=== PATIENT | male | born 1975 | race Caucasian/White ===

== ENCOUNTER 2024-10-02 16:02 | Emergency (ER) | payer OTHER ==
[2024-10-02] MEDS ORDERED: LORazepam 2 MG/ML VIAL ONE (17:02)
[2024-10-02 17:05] LABS: Absolute Eosinophils 0.1 K/uL (0-0.5); Absolute Lymphocytes (CBC) 1.1 K/uL (0.7-4.9); Absolute Monocytes 0.4 K/uL (0.1-1.3); Absolute Neutrophil 4.5 K/uL (1.8-8.0); Basophils % 0.5 % (0-1.3); Eosinophils % 2.1 % (0-4.4); Hemoglobin 14.8 g/dL (13.6-17.9); Lymphocytes % 18.3 % (15.3-44.8); MCH 32.2 pg (27.0-35.0); MCV 89.4 fL (80-100); MPV 8.4 fL (7.6-11.3); Monocytes % 7.1 % (3.3-12.3); Nucleated Red Blood Cells % 0.2 % (0-0); Platelets 202 thou/uL (152-406); RBC Red Blood Cell Count 4.58 M/uL (4.33-5.43); Red Cell Distribution Width 13.3 % (12.1-15.2)
[2024-10-02 17:13] LABS: PT Prothrombin Time 11.3 SECONDS (10-13.0); Protime INR 0.99
--- NOTE | 2024-10-02 17:26 | RAD REPORT ---
EXAMINATION: ONE VIEW CHEST XR CLINICAL INDICATION: Male, 48 years old.,CHEST PAIN TECHNIQUE: Frontal chest projection is submitted. Examination is limited by patient positioning and t echnique. COMPARISON: No prior exam. FINDINGS: The lungs are well inflated and clear. No pneumothorax or sizable effusion. The heart is normal in s ize. Mediastinal contours are unremarkable. IMPRESSION: No acute intrathoracic abnormalities.
[2024-10-02 17:44] LABS: Albumin 3.8 g/dL (3.4-5.0); Albumin/Globulin Ratio 1.3 (1.1-1.8); Anion Gap 6.6 mEq/L (5.0-15.0); Bilirubin Direct 0.2 mg/dL (0-0.2); Bilirubin Indirect, Calculated 0.5 mg/dL (0.2-0.8); Bilirubin Total 0.7 mg/dL (0.2-1.0); Magnesium 2.1 mg/dL (1.6-2.4); Potassium 3.6 mEq/L (3.5-5.1); Protein, Total 6.8 g/dL (6.4-8.2); Thyroid Stimulating Hormone 0.824 uIU/mL (0.358-3.740); Troponin High Sensitivity 3.2 pg/mL (<58.9)
--- NOTE | 2024-10-02 17:48 | EDPHYS ---
Physician Documentation [facility] Name: Daniel Tran Age: 48 yrs Sex: Male : 1975 Arrival Date: 10/02/2024 Time: 16:02 Bed 19 Private MD: ED Physician Jah Mandujano HPI: 10/02 16:31 This 48 yrs old Male presents to ER via Ambulatory with complaints of Chest Pain, sb4 Numbness Of Arm, Anxiety. 16:47 patient reports chest pain for a few months now and has been experiencing left arm sb4 numbness/tingling for the past 2 weeks. he was seen by his PCP 2 weeks ago, had routine blood work done, was diagnosed with anxiety and started on fluoxetine daily. he states that his symptoms have not improved and is concerned because his blood pressure has been fluctuating- anywhere from 130s/90s to 110s/70s. he states that he has been under a lot of stress the past few months with work and family issues. Historical: - Allergies: 16:21 No Known Allergies; kc6 - PMHx: 16:21 Anxiety; kc6 - PSHx: 16:21 None; kc6 - Immunization history:: Adult Immunizations up to date. - Infectious Disease History:: Denies. - Social history:: Smoking status: Patient denies any tobacco usage or history of. ROS: 16:47 Constitutional: Negative for fever, chills, and weight loss, sb4 16:47 Cardiovascular: Positive for chest pain, 16:47 Neuro: Positive for numbness, 16:47 Psych: Positive for anxiety, 16:47 All other systems are negative, Exam: 16:47 Constitutional: This is a well developed, well nourished patient who is awake, alert, sb4 and in no acute distress. Head/Face: Normocephalic, atraumatic. Eyes: Extra-ocular motions intact. Periorbital areas with no swelling, redness, or edema. ENT: Mucous membranes moist. Cardiovascular: Regular rate and rhythm with a normal S1 and S2. Respiratory: No increased work of breathing, no retractions or nasal flaring. Abdomen/GI: Soft, non-tender, no distension. Skin: Warm, dry with normal turgor. Normal color with no rashes, no lesions, and no evidence of cellulitis. MS/ Extremity: Pulses equal, no cyanosis. Neurovascular intact. Full, normal range of motion. 16:47 Psych: Behavior/mood is anxious, Vital Signs: 16:20 BP 143 / 91; Pulse 71; Resp 16 S; Temp 98.7(O); Pulse Ox 99% on R/A; Weight 99.79 kg kc6 (R); Height 5 ft. 8 in. (R); Pain 4/10; 17:07 BP 131 / 80; Pulse 64; Resp 16 S; Pulse Ox 96% on R/A; kc6 18:16 BP 129 / 84; Pulse 62; Resp 18 S; Pulse Ox 99% ; kc6 16:20 Body Mass Index 33.45 (99.79 kg, 172.72 cm) kc6 16:20 Pain Scale: Adult kc6 MDM: 16:10 Medical Screening Exam initiated sb4 17:14 Differential diagnosis: anxiety, CAD, thyroid dysfunction, angina, electrolyte sb4 abnormality. 17:47 Data reviewed: vital signs, nurses notes, lab test result(s), EKG, radiologic studies, sb4 and as a result, I will discharge patient. Counseling: I had a detailed discussion with the patient and/or guardian regarding the historical points, exam findings, and any diagnostic results supporting the discharge/admit diagnosis, lab results, radiology results, the need for outpatient follow up, for definitive care, to return to the emergency department if symptoms worsen or persist or if there are any questions or concerns that arise at home. 10/02 16:18 Order name: Basic Metabolic Panel; Complete Time: 17:45 sb4 10/02 16:18 Order name: CBC with Diff; Complete Time: 17:11 sb4 10/02 16:18 Order name: LFT's; Complete Time: 17:45 sb4 10/02 16:18 Order name: Magnesium; Complete Time: 17:45 sb4 10/02 16:18 Order name: NT PRO-BNP; Complete Time: 17:45 sb4 10/02 16:18 Order name: PT-INR; Complete Time: 17:13 sb4 10/02 16:18 Order name: Troponin HS; Complete Time: 17:45 sb4 10/02 16:18 Order name: TSH; Complete Time: 17:45 sb4 10/02 16:18 Order name: XRAY Chest (1 view); Complete Time: 17:26 sb4 10/02 16:18 Order name: Cardiac monitoring; Complete Time: 16:22 sb4 10/02 16:18 Order name: EKG - Nurse/Tech; Complete Time: 16:22 sb4 10/02 16:18 Order name: IV Saline Lock; Complete Time: 16:46 sb4 10/02 16:18 Order name: Labs collected and sent; Complete Time: 16:46 sb4 10/02 16:18 Order name: O2 Per Protocol; Complete Time: 16:22 sb4 10/02 16:18 Order name: O2 Sat Monitoring; Complete Time: 16:22 sb4 EC:29 Rate is 66 beats/min. Rhythm is regular, Normal Sinus Rhythm. OR interval is normal at sb4 146 msec. QRS interval is normal at 102 msec. QT interval is normal at 398 msec. No Q waves. T waves are Normal. No ST changes noted. Clinical impression: Normal ECG. Interpreted by me. Reviewed by me. Administered Medications: 17:05 Drug: Ativan IVP 0.5 mg IVP once Route: IVP; Site: right antecubital; kc6 18:16 Follow up: Response: No adverse reaction; Anxiety decreased; RASS: Alert and Calm (0) kc6 Disposition Summary: 10/02/24 17:48 Discharge Ordered Notes: Location: Home sb4 Problem: an ongoing problem sb4 Symptoms: have improved sb4 Condition: Stable sb4 Diagnosis - Chest pain, unspecified sb4 - Anxiety disorder, unspecified sb4 Followup: sb4 - With: Emergency Department - When: As needed - Reason: Trouble breathing, Worsening of condition Discharge Instructions: - Discharge Summary Sheet sb4 - Nonspecific Chest Pain, Adult, [id number] sb4 - Managing Anxiety, Adult sb4 Forms: - Patient Portal Instructions sb4 - Leadership Thank You Letter sb4 Prescriptions: - Hydroxyzine HCl 25 mg Oral Tablet - take 1 tablet ORAL route every 6 hours As needed; 12 tablet; Refills: 0, sb4 Product Selection Permitted Signatures: Dispatcher [employer] Huyen Sibley RN RN kc6 Oneyda Parks PA-C PA-C sb4 Corrections: (The following items were deleted from the chart) 16:50 16:47 patient reports chest pain for a few months now and has been experiencing left sb4 arm numbness/tingling for the past 2 weeks. he was seen by his PCP 2 weeks ago, had routine blood work done, was diagnosed with anxiety and started on fluoxetine daily. he states that his symptoms have not improved and is concerned because his blood pressure has been fluctuating- anywhere from 130s/90s to 110s/70s. additionally, his states that he has been more irritable today. sb4
--- NOTE | 2024-10-02 17:48 | ER ---
Nurse's Notes [facility] Name: Daniel Tran Age: 48 yrs Sex: Male : 1975 Arrival Date: 10/02/2024 Time: 16:02 Bed 19 Private MD: Diagnosis: Chest pain, unspecified;Anxiety disorder, unspecified Presentation: 10/02 16:20 Chief complaint: Patient states: intermittent CP with HTN for "weeks". pt reports left kc6 and lip numbness x2 days on and off. Coronavirus screen: At this time, the client does not indicate any symptoms associated with coronavirus-19. Ebola Screen: No symptoms or risks identified at this time. Initial Sepsis Screen: Does the patient meet any 2 criteria? No. Patient's initial sepsis screen is negative. Does the patient have a suspected source of infection? No. Patient's initial sepsis screen is negative. Risk Assessment: Do you want to hurt yourself or someone else? Patient reports no desire to harm self or others. Onset of symptoms was October 02, 2024. 16:20 Method Of Arrival: Ambulatory [facility] 16:20 Acuity: STEFAN 3 kc6 Historical: - Allergies: 16:21 No Known Allergies; kc6 - PMHx: 16:21 Anxiety; kc6 - PSHx: 16:21 None; kc6 - Immunization history:: Adult Immunizations up to date. - Infectious Disease History:: Denies. - Social history:: Smoking status: Patient denies any tobacco usage or history of. Screenin:22 [facility] ED Fall Risk Assessment (Adult) History of falling in the last 3 months, kc6 including since admission No falls in past 3 months (0 pts) Confusion or Disorientation No (0 pts) Intoxicated or Sedated No (0 pts) Impaired Gait No (0 pts) Mobility Assist Device Used No (0 pt) Altered Elimination No (0 pt) Score/Fall Risk Level 0 - 2 = Low Risk Oriented to surroundings, Maintained a safe environment, Educated pt \\T\\ family on fall prevention, incl call for assistance when getting out of bed. Abuse screen: Denies threats or abuse. Denies injuries from another. Nutritional screening: No deficits noted. Tuberculosis screening: No symptoms or risk factors identified. Assessment: 17:05 General: Appears in no apparent distress. comfortable, well groomed, well developed, kc6 Behavior is calm, cooperative, appropriate for age. Pain: Complains of pain in chest Pain radiates to left arm Pain began 2 weeks ago. Neuro: Level of Consciousness is awake, alert, obeys commands, Oriented to person, place, time, situation, Appropriate for age Swatcher are equal bilaterally Moves all extremities. Full function Gait is steady, Speech is normal, Facial symmetry appears normal, Facial symmetry: tongue is midline, Pupils are PERRLA, Numbness in left arm and mouth. Cardiovascular: Reports chest pain, Heart tones S1 S2 present Capillary refill < 3 seconds Rhythm is sinus rhythm. Respiratory: Airway is patent Trachea midline Respiratory effort is even, unlabored, Respiratory pattern is regular, symmetrical. GI: No signs and/or symptoms were reported involving the gastrointestinal system. : No signs and/or symptoms were reported regarding the genitourinary system. EENT: No signs and/or symptoms were reported regarding the EENT system. Derm: No signs and/or symptoms reported regarding the dermatologic system. Skin is intact, is healthy with good turgor, Skin is clammy, Skin is pink, warm \\T\\ dry. Skin temperature is warm. Musculoskeletal: No signs and/or symptoms reported regarding the musculoskeletal system. Circulation, motion, and sensation intact. Range of motion: intact in all extremities. 18:15 Reassessment: Patient appears in no apparent distress at this time. No changes from kc6 previously documented assessment. Patient and/or family updated on plan of care and expected duration. Pain level reassessed. Patient is alert, oriented x 3, equal unlabored respirations, skin warm/dry/pink. Patient states feeling better. Patient states symptoms have improved. Vital Signs: 16:20 BP 143 / 91; Pulse 71; Resp 16 S; Temp 98.7(O); Pulse Ox 99% on R/A; Weight 99.79 kg kc6 (R); Height 5 ft. 8 in. (R); Pain 4/10; 17:07 BP 131 / 80; Pulse 64; Resp 16 S; Pulse Ox 96% on R/A; kc6 18:16 BP 129 / 84; Pulse 62; Resp 18 S; Pulse Ox 99% ; kc6 16:20 Body Mass Index 33.45 (99.79 kg, 172.72 cm) [facility] 16:20 Pain Scale: Adult kc6 ED Course: 16:06 Patient arrived in ED. al6 16:09 Oney[facility] Parks [facility] sb[facility] 16:09 Jah Mandujano MD is Attending Physician. sb4 16:20 Huyen Dickson, RN is Primary Nurse. kc6 16:21 Triage completed. kc6 16:21 Arm band placed on. kc6 16:22 Patient has correct armband on for positive identification. Bed in low position. Call kc6 light in reach. Side rails up X2. Adult w/ patient. jig builder on. Pulse ox on. NIBP on. Door closed. Noise minimized. Lights dimmed. Pillow given. Verbal reassurance given. 16:22 Patient maintains SpO2 saturation greater than 95% on room air. kc6 16:25 EKG done, by ED staff, reviewed by Oneyda Parks PA-C. nh2 16:47 Inserted saline lock: 20 gauge in right antecubital area, using aseptic technique. kc6 Blood collected. Flushed with 10 mL NS. 16:53 XRAY Chest (1 view) In Process Unspecified. EDMS 18:25 No provider procedures requiring assistance completed. IV discontinued, intact, kc6 bleeding controlled, No redness/swelling at site. Pressure dressing applied. Administered Medications: 17:05 Drug: Ativan IVP 0.5 mg IVP once Route: IVP; Site: right antecubital; kc6 18:16 Follow up: Response: No adverse reaction; Anxiety decreased; RASS: Alert and Calm (0) kc6 Medication: 18:26 VIS not applicable for this client. kc6 Outcome: 17:48 Discharge ordered by . sb4 18:25 Discharged to home ambulatory, with significant other, kc6 18:25 Condition: improved 18:25 Discharge instructions given to patient, significant other, Instructed on discharge instructions, follow up and referral plans. no drinking with medication, no driving heavy equipment, medication usage, Demonstrated understanding of instructions, follow-up care, medications, Prescriptions given X 1, 18:26 Patient left the ED. kc6 Signatures: Dispatcher [employer] EDMS Huyen Dickson RN RN Oneyda Orozco PA-C PA-C sb4 [place] , [place] [id number] [address] [place] al6
[2024-10-02 18:41] VITALS: TEMP 98.7
[2024-10-02 18:45] VITALS: BP 129/84; O2SAT 99
--- NOTE | 2024-10-03 11:30 | EKG ---
Test Date: 2024-10-02 Test Time: 16:20:42 [employer]: GENESIS MEASUREMENT RESULTS: Intervals: Rate: 66 NE: 146 QRSD: 102 QT: 398 QTc: 417 Edwards: P: 36 NE: 146 QRS: 24 T: 8 INTERPRETIVE STATEMENTS: Normal sinus rhythm Normal ECG No previous ECG available for comparison Electronically Signed On 10-03-24 11:28:47 CDT by Yinka Astorga
== END 2024-10-02 18:26 | disposition home or self-care (01) ==
LOC: ER 16:02
DX: R07.9 Chest pain, unspecified (principal); F41.9 Anxiety disorder, unspecified
CPT/HCPCS: 36415; 71045; 80048; 80076; 83735; 83880; 84443; 84484; 85025; 85610; 93005; 96374; 99285